=== PATIENT | female | born 1995 | race African-American/Black ===

== ENCOUNTER 2020-02-27 17:57 | Emergency (ER) | payer OTHER ==
[~2020-02-27] VITALS: Ht 157.5 cm; Wt 50.8 kg
[2020-02-27 18:54] LABS: ABSOLUTE NEUTROPHILS 5.7 thou/uL (1.4-8.2); BASOPHILS 0.6 % (0.0-2.0); EOSINOPHILS 1.3 % (0.0-3.0); HEMOGLOBIN 10.5 gm/dL (12.0-15.0); MCHC 31.7 g/dL (28.0-37.0); MCV 66.4 fL (80.0-100.0); PLATELET COUNT 355 thou/uL (150-400); POLYS 61.1 % (36.0-66.0); RBC 4.97 mil/uL (4.20-5.00); RDW 17.8 % (10.5-14.5); WBC 9.3 thou/uL (4.0-11.0)
[2020-02-27 18:56] LABS: MICROCYTES 2+
[2020-02-27 19:03] LABS: CALCIUM 8.8 mg/dL (8.5-10.1); POTASSIUM 3.7 mmol/L (3.5-5.1)
[2020-02-27 19:09] LABS: ALBUMIN 3.4 g/dL (3.4-5.0); TOTAL BILIRUBIN 0.3 mg/dL (<0.1-1.0); TOTAL PROTEIN 8.1 g/dL (6.4-8.2)
[2020-02-27] MEDS ORDERED: IBUPROFEN 800800 M1 PO (20:03)
[2020-02-27 20:05] VITALS: BP 104/70
== END 2020-02-27 20:07 | disposition home or self-care (01) ==
LOC: ER 17:57
PROVIDERS: Emergency Medicine
DX: S00.83XA Contusion of other part of head, initial encounter (principal); S70.312A Abrasion, left thigh, initial encounter; S70.311A Abrasion, right thigh, initial encounter; S90.511A Abrasion, right ankle, initial encounter; M54.9 Dorsalgia, unspecified; M54.2 Cervicalgia; M25.511 Pain in right shoulder; M25.521 Pain in right elbow; M25.551 Pain in right hip; R68.84 Jaw pain; V86.59XA Driver of other special all-terrain or other off-road motor vehicle injured in nontraffic accident, initial encounter; Y93.I9 Activity, other involving external motion; Y92.828 Other wilderness area as the place of occurrence of the external cause; Y99.8 Other external cause status